=== PATIENT | male | born 1985 | race Caucasian/White ===

== ENCOUNTER 2023-01-17 07:11 | Day surgery (SDC) | payer MEDICAID ==
[~2023-01-17] VITALS: Ht 167.6 cm; Wt 88.5 kg
[2023-01-17] MEDS ORDERED: MIDAZOLAM HCL 5 MG/5 ML VIAL ONE (07:36)
[2023-01-17] MEDS ORDERED: MEPERIDINE 100 MG INJ. 100 MG/ML VIAL ONE (07:36)
[2023-01-17 08:30] VITALS: O2SAT 100
[2023-01-17] MEDS ORDERED: DIPHENHYDRAMINE INJ 50 MG/ML VIAL ONE (08:44)
[2023-01-17 14:39] VITALS: BP_SYST 129; PULSE 54; RESP 15
== END 2023-01-17 09:51 | disposition home or self-care (01) ==
LOC: SDS 07:11 → SMU 07:13 → SDS 09:51
PROVIDERS: ATTEND Internal Medicine Gastroenterology
DX: R10.9 Unspecified abdominal pain (principal); K29.50 Unspecified chronic gastritis without bleeding; K20.90 Esophagitis, unspecified without bleeding; R19.4 Change in bowel habit; Z79.899 Other long term (current) drug therapy
CPT/HCPCS: 43239; 99152; 87081; 36415; 88305; 88312; 88313; G0378; J2250; J2175; J1200